=== PATIENT | male | born 1970 | race Caucasian/White ===

== ENCOUNTER 2018-04-15 21:00 | Emergency (ER) | payer OTHER ==
--- NOTE | 2018-04-15 21:57 | XRay Report ---
FINAL REPORT PROCEDURE: XR TIBIA FIBULA 2V RT TECHNIQUE: RIGHT tibia and fibula radiographs, AP and lateral views. CPT 49829 HISTORY: trauma to lower leg COMPARISON: No prior studies are available for comparison. FINDINGS: Fracture (s) and/or Dislocation(s): None . Joint space(s): Normal . Soft tissues: Normal . Bone mineralization: Normal . Foreign bodies: A small radiopaque foreign body measuring about 2 millimeters is identified in the posterior soft tissues of distal 3rd.. IMPRESSION: No acute fracture 2 millimeter radiopaque foreign body in the posterior soft tissues..
[2018-04-16] MEDS ORDERED: NACL 0.9% IR ONE (00:49)
[2018-04-16] MEDS ORDERED: NACL 0.9% 500 ML IR ONE (00:49)
[2018-04-16] MEDS ORDERED: DILAUDID ONE (00:56)
[2018-04-16] MEDS ORDERED: DILAUDID IM ONE (01:03)
[2018-04-16] MEDS ORDERED: XYLOCAINE 1% 20 mL INFILTRATI ONE (02:46)
[2018-04-16] MEDS ORDERED: ANCEF IM ONE (02:55)
--- NOTE | 2018-04-16 02:55 | Emergency Department Report ---
ED Extremity Problem HPI - General Chief complaint: Extremity Injury, Lower Stated complaint: RIGHT LEG LACERATION Time Seen by Provider: 04/16/18 01:45 Source: patient Mode of arrival: Ambulatory Limitations: Language Barrier - History of Present Illness Initial comments: Right lower leg laceration wound center anterior aspect distally neurovascularly intact patient who states that he get a laceration he says it happened Tuesday night about 6 a 6 PM here for evaluation. 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 denies: chest pain, shortness of breath, fever, myalgias, arthralgias, rash - Related Data Previous Rx's Medication Instructions Recorded Last Taken Type Cephalexin [Keflex] 500 mg PO Q6HR #20 capsule 04/16/18 Unknown Rx Allergies Allergy/AdvReac Type Severity Reaction Status Date / Time No Known Allergies Allergy Verified 04/16/18 01:02 ED Review of Systems ROS: Stated complaint: RIGHT LEG LACERATION Other details as noted in HPI Comment: All other systems reviewed and negative Constitutional: denies: diaphoresis, fever, malaise Eyes: denies: eye discharge, vision change ENT: denies: dental pain, hearing loss, epistaxis Respiratory: denies: shortness of breath, SOB with exertion, SOB at rest, stridor Cardiovascular: denies: chest pain, palpitations, dyspnea on exertion, orthopnea , edema, syncope Gastrointestinal: denies: abdominal pain, nausea, vomiting, diarrhea, constipation, hematemesis, melena Genitourinary: denies: urgency, frequency, hematuria Neurological: denies: headache, weakness, numbness, paresthesias, confusion, abnormal gait, vertigo ED Past Medical Hx - Past Medical History Previous Medical History?: No - Surgical History Past Surgical History?: No - Social History Smoking Status: Never Smoker Substance Use Type: Alcohol - Medications Home Medications: Home Medications Medication Instructions Recorded Confirmed Last Taken Type Cephalexin [Keflex] 500 mg PO Q6HR #20 capsule 04/16/18 Unknown Rx ED Physical Exam - General Limitations: Language Barrier General appearance: alert, anxious - Head Head exam: Present: atraumatic, normocephalic - Eye Eye exam: Present: PERRL, EOMI - ENT ENT exam: Present: normal exam, normal orophraynx - Neck Neck exam: Present: normal inspection. Absent: tenderness, meningismus - Respiratory Respiratory exam: Present: normal lung sounds bilaterally. Absent: respiratory distress, wheezes, rales, rhonchi, stridor, chest wall tenderness - Cardiovascular Cardiovascular Exam: Present: regular rate, normal rhythm, normal heart sounds. Absent: bradycardia, tachycardia, irregular rhythm - GI/Abdominal GI/Abdominal exam: Present: soft. Absent: tenderness, guarding, rebound, rigid - Extremities Exam Extremities exam: Present: other (3 cm laceration pretibial area through fascia for range of motion neurovascular intact) - Back Exam Back exam: Present: normal inspection. Absent: CVA tenderness (R), CVA tenderness (L), muscle spasm, paraspinal tenderness, vertebral tenderness - Neurological Exam Neurological exam: Present: alert, oriented X3, CN II-XII intact. Absent: motor sensory deficit - Psychiatric Psychiatric exam: Present: anxious ED Course Vital Signs 04/15/18 04/16/18 04/16/18 21:10 00:51 01:04 Temperature 97.4 F L 98 F Pulse Rate 89 88 Respiratory 20 18 18 Rate Blood Pressure 152/101 Blood Pressure 152/101 147/101 [Right] O2 Sat by Pulse 98 98 Oximetry - Laceration /Wound Repair Right Anterior Leg Wound Location: lower extremity Wound's Depth, Shape: contused tissue Irrigated w/ Saline (ccs): 3 Betadine Prep?: Yes Anesthesia: 1% Lidocaine Volume Anesthetic (ccs): 7 Wound Debrided: minimal Number of Sutures: 0 (skin closure steril marii) Layer Closure?: Yes Deep Layer Suture Size/Type: 4:0 Number Deep Layer Sutures: 2 Sterile Dressing Applied?: Yes Progress: no complications ED Medical Decision Making - Radiology Data Radiology results: report reviewed - Medical Decision Making Patient had an x-ray that showed small minute foreign body question of this was acute or chronic it is not in proximity of today's injury there was no fracture noted. Given the subacute nature of the injury which is approximately 12 hours old I did inform this patient in Finnish of the risk of infection he did request closer informed of risks including infection. Wound was loosely reapproximated with 2 deep sutures of Vicryl and several sterile marii were placed for the skin edges no evidence of deep injury was appreciated no obvious foreign body was appreciated however his. She noted radiopaque foreign body was noted by the radiologist on the x-ray this does appear to be subacute and not related to today's injury patient was informed of this in Finnish as well he wanted to have this followed up with the follow-up doctor Critical care attestation.: If time is entered above; I have spent that time in minutes in the direct care of this critically ill patient, excluding procedure time. ED Disposition Clinical Impression: Laceration, Retained foreign body Disposition: TO HOME OR SELFCARE Is pt being admited?: No Condition: Stable Instructions: Laceration (ED), Soft Tissue Foreign Body (ED), Acute Wound Care (ED) Additional Instructions: Staple removal in 10 days, wound check in 2 days and return if new alarming symptoms such as worse pain fever drainage or other problems Prescriptions: Cephalexin [Keflex] 500 mg PO Q6HR #20 capsule Referrals: PRIMARY CAREMD [Primary Care Provider] - 3-5 Days SARA ALLEN MD [Staff Physician] - 3-5 Days Time of Disposition: 04:27 Print Language: UKRAINIAN
[2018-04-16 04:40] VITALS: BP 133/89
== END 2018-04-16 04:51 | disposition home or self-care (01) ==
LOC: ED 21:00
DX: S81.811A Laceration without foreign body, right lower leg, initial encounter (principal); W26.8XXA Contact with other sharp object(s), not elsewhere classified, initial encounter; Y93.89 Activity, other specified; Y92.89 Other specified places as the place of occurrence of the external cause; Y99.8 Other external cause status
CPT/HCPCS: 12002; 73590; 96372; 99283; J0690; J1170